=== PATIENT | female | born 1985 | race Caucasian/White ===

== ENCOUNTER → 2017-09-15 16:39 | Outpatient (REF) | payer OTHER, SELFPAY ==
[2017-09-15 23:12] LABS: Amphetamine/Metha Screen,Urine Negative ng/mL (<1000); Barbiturates Screen,Urine Negative ng/mL (<200); Benzodiazepines Screen,Urine Negative ng/mL (200); Cannabinoid Screen,Urine Negative ng/mL (<50); Cocaine Screen,Urine Negative ng/g (<300); Methadone Screen,Urine Negative ng/mL (<300); Opiate Screen,Urine Negative ng/mL (<300); Phencyclidine Screen,Urine Negative ng/mL (<25)
== END ==
LOC: LAB 16:39
PROVIDERS: Visit Provider Physician Assistant
DX: Z79.899 Other long term (current) drug therapy (principal)
CPT/HCPCS: 80305

== ENCOUNTER 2017-11-17 14:21 | Emergency (ER) | payer OTHER, SELFPAY ==
[2017-11-17 14:51] VITALS: BP 141/89; PULSE 83; RESP 20; TEMP 36.8; O2SAT 97; BMI 25.0
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
[2017-11-17 15:17] LABS: UTC Pregnancy Test, Urine Negative (Negative)
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
[2017-11-17 15:24] VITALS: BP 141/89; PULSE 83; RESP 20; TEMP 36.8
== END 2017-11-17 15:44 | disposition home or self-care (01) ==
PROVIDERS: Emergency Provider Nurse Practitioner; PCP Physician Assistant
DX: M62.838 Other muscle spasm (principal); M25.511 Pain in right shoulder; F41.8 Other specified anxiety disorders; E78.5 Hyperlipidemia, unspecified; I10 Essential (primary) hypertension; F17.210 Nicotine dependence, cigarettes, uncomplicated; E87.6 Hypokalemia; Z88.8 Allergy status to other drugs, medicaments and biological substances
CPT/HCPCS: 81025; 96372; 99201

== ENCOUNTER → 2017-12-12 16:23 | Outpatient (REF) | payer OTHER, SELFPAY ==
[2017-12-12 18:54] LABS: Amphetamine/Metha Screen,Urine Negative ng/mL (<1000); Barbiturates Screen,Urine Negative ng/mL (<200); Benzodiazepines Screen,Urine Negative ng/mL (200); Cannabinoid Screen,Urine Negative ng/mL (<50); Cocaine Screen,Urine Negative ng/g (<300); Methadone Screen,Urine Negative ng/mL (<300); Opiate Screen,Urine Negative ng/mL (<300); Phencyclidine Screen,Urine Negative ng/mL (<25)
[2017-12-16 12:28] LABS: Alprazolam Negative (Cutoff=100); Benzodiazepines Negative ng/mL (Cutoff=100); Clonazepam Negative (Cutoff=100); Flurazepam Negative (Cutoff=100); Lorazepam Negative (Cutoff=100); Midazolam Negative (Cutoff=100); Temazepam Negative (Cutoff=100); Triazolam Negative (Cutoff=100)
== END ==
LOC: LAB 16:23
PROVIDERS: Visit Provider Physician Assistant
DX: Z79.899 Other long term (current) drug therapy (principal); R10.9 Unspecified abdominal pain
CPT/HCPCS: 80305; 80346; 87086; 87088; 87186

== ENCOUNTER 2017-12-20 13:58 | Outpatient (CLI) | payer OTHER, SELFPAY ==
[2017-12-20 14:45] VITALS: BP 87/63; PULSE 68; RESP 20; TEMP 36.7; O2SAT 96
[2017-12-20 15:00] VITALS: BP 97/63; PULSE 80; RESP 20; O2SAT 96
== END 2017-12-20 15:00 | disposition home or self-care (01) ==
LOC: INF 14:03
PROVIDERS: PCP Physician Assistant; Visit Provider Physician Assistant
DX: N39.0 Urinary tract infection, site not specified (principal); B96.20 Unspecified Escherichia coli [E. coli] as the cause of diseases classified elsewhere
CPT/HCPCS: 96372; J1335

== ENCOUNTER 2017-12-21 14:10 | Outpatient (CLI) | payer OTHER, SELFPAY ==
[2017-12-21 14:50] VITALS: BP 77/57; PULSE 86; RESP 18
== END 2017-12-21 15:00 | disposition still patient (30) ==
LOC: INF 14:17
PROVIDERS: PCP Physician Assistant; Visit Provider Physician Assistant
DX: N39.0 Urinary tract infection, site not specified (principal); B96.20 Unspecified Escherichia coli [E. coli] as the cause of diseases classified elsewhere
CPT/HCPCS: 96372; J1335

== ENCOUNTER 2017-12-22 11:06 | Outpatient (CLI) | payer OTHER, SELFPAY ==
[2017-12-22 11:45] VITALS: BP 122/76; PULSE 82; RESP 18; TEMP 36.7; O2SAT 100
== END 2017-12-22 12:00 | disposition home or self-care (01) ==
LOC: INF 11:06
PROVIDERS: PCP Physician Assistant; Visit Provider Physician Assistant
DX: N39.0 Urinary tract infection, site not specified (principal); B96.20 Unspecified Escherichia coli [E. coli] as the cause of diseases classified elsewhere
CPT/HCPCS: 96372; J1335

== ENCOUNTER → 2017-12-23 16:01 | Outpatient (CLI) | payer OTHER, SELFPAY ==
[2017-12-23 16:01] VITALS: BP 102/77; PULSE 86; RESP 20; TEMP 36.9; O2SAT 96
[2017-12-23 16:17] VITALS: BP 103/75; PULSE 85; RESP 20; TEMP 36.9; O2SAT 96
== END ==
PROVIDERS: PCP Physician Assistant; Visit Provider Physician Assistant
DX: N39.0 Urinary tract infection, site not specified (principal); B96.20 Unspecified Escherichia coli [E. coli] as the cause of diseases classified elsewhere
CPT/HCPCS: 96372; J1335

== ENCOUNTER 2017-12-26 12:10 | Outpatient (CLI) | payer OTHER, SELFPAY ==
[2017-12-26 12:30] VITALS: BP 107/73; PULSE 91; RESP 18; TEMP 36.6
== END 2017-12-26 12:45 | disposition home or self-care (01) ==
LOC: INF 12:19
PROVIDERS: Visit Provider Physician Assistant
DX: N39.0 Urinary tract infection, site not specified (principal); B96.20 Unspecified Escherichia coli [E. coli] as the cause of diseases classified elsewhere
CPT/HCPCS: 96372; J1335

== ENCOUNTER 2017-12-27 13:09 | Outpatient (CLI) | payer OTHER, SELFPAY ==
[2017-12-27 13:35] VITALS: BP 122/78; PULSE 66; RESP 20; TEMP 36.7; O2SAT 96
[2017-12-27 13:50] VITALS: BP 110/68; PULSE 66; RESP 20; TEMP 36.9; O2SAT 96
== END 2017-12-27 13:50 | disposition home or self-care (01) ==
LOC: INF 13:09
PROVIDERS: PCP Physician Assistant; Visit Provider Physician Assistant
DX: N39.0 Urinary tract infection, site not specified (principal); B96.20 Unspecified Escherichia coli [E. coli] as the cause of diseases classified elsewhere
CPT/HCPCS: 96372; J1335

== ENCOUNTER 2017-12-28 13:15 | Outpatient (CLI) | payer OTHER, SELFPAY ==
[2017-12-28 13:42] VITALS: BP 115/80; PULSE 76; RESP 18; TEMP 36.7; O2SAT 100
== END 2017-12-28 14:00 | disposition home or self-care (01) ==
LOC: INF 13:15
PROVIDERS: PCP Physician Assistant; Visit Provider Physician Assistant
DX: N39.0 Urinary tract infection, site not specified (principal); B96.20 Unspecified Escherichia coli [E. coli] as the cause of diseases classified elsewhere
CPT/HCPCS: 96372; J1335

== ENCOUNTER → 2017-12-28 14:40 | Outpatient (REF) | payer OTHER, SELFPAY | LOC: LAB 14:40 | PROVIDERS: Visit Provider Physician Assistant | DX: R10.9 Unspecified abdominal pain (principal); A49.9 Bacterial infection, unspecified; Z16.12 Extended spectrum beta lactamase (ESBL) resistance | CPT/HCPCS: 87086 ==

== ENCOUNTER 2017-12-29 12:55 | Outpatient (CLI) | payer OTHER, SELFPAY ==
[2017-12-29 12:56] VITALS: BP 104/69; PULSE 87; RESP 18; TEMP 36.7; O2SAT 98; BMI 25.4
== END 2017-12-29 13:30 | disposition home or self-care (01) ==
LOC: INF 12:55
PROVIDERS: PCP Physician Assistant; Visit Provider Physician Assistant
DX: N39.0 Urinary tract infection, site not specified (principal); B96.20 Unspecified Escherichia coli [E. coli] as the cause of diseases classified elsewhere
CPT/HCPCS: 96372; J1335

== ENCOUNTER → 2018-01-18 12:38 | Outpatient (CLI) | payer OTHER, SELFPAY ==
--- NOTE | 2018-01-18 12:41 | CT_ITS ---
CT abdomen pelvis wo con Ordering Physician: SHANNAN Martin Patient Age: 32 years: Female HISTORY: ITS.REASON: bilateral flank pain, hematuria, EBSL + TECHNIQUE: Helical CT scanning performed at abdomen & pelvis with no oral nor IV contrast utilized. Axial sagittal and coronal reconstructions performed on CT workstation. All CT scans at this facility used one or more dose reduction techniques , viz: automatic exposure control, ma/Kv adjustment per patient's size, (including targeted exam where dose matched to the indication; i.e. head); or iterative reconstruction technique COMPARISON :None FINDINGS Lung bases. Clear. No active disease heart normal size Abdomen/pelvis. The lack of oral and IV contrast decreases sensitivity. Liver. Normal size and appearance. Gallbladder is contracted no calcified stones. No biliary ductal dilatation. Pancreas unremarkable on this noncontrast study. Spleen. Satisfactory. Normal to upper normal size.. tract Kidneys. No urinary tract calculi nor obstruction. No stranding about either kidney. The kidneys appear normal in size shape & position. . Ureters unremarkable. No calculi nor obstruction. Bladder unremarkable. Pelvis Retroverted retroflexed uterus appears satisfactory THE LEFT ovary is larger than the right measuring 4.1 cm length x 2.8 cm. Left ovary Likely contains multiple cysts with largest 18 mm cyst RIGHT ovary is smaller at 3 cm. Minimal fluid the cul-de-sac likely physiologic GI TRACT Large, increased stool is seen throughout the right colon including low-lying cecum. Prominent stool also seen but less pronounced at the transverse colon. A this may reflect some constipation towards the right colon. However there is minimal stool and gas at the left colon distal to the splenic flexure. The stool from the left colon and rectosigmoid has cleared The appendix is normal. Terminal ileum unremarkable. Small bowel appears normal. Stomach the moderate wall thickness due to its lack of distention. Tiny umbilical hernia. Not of significance.. . There is some areas of focal mild edematous changes at the buttocks bilaterally suggesting subcutaneous gluteal injections. Clinical correlation required . Osseous structures intact. No significant findings IMPRESSION... No acute findings abdomen or pelvis 1. No urinary tract calculi nor obstruction... No findings to account for the right sided flank pain . Ureters unremarkable bladder unremarkable. 2. At pelvis generous size left ovary measured 4.1 cm.. It containing on multiple follicular cysts the largest estimated at 1.8 cm size. Minimal fluid at cul-de-sac appears physiologic. 3. Very Prominent large amount stool seen throughout the right colon with generous stool throughout transverse colon to the splenic flexure.- May reflect constipation right colon. Minimal stool left colon and rectosigmoid
== END ==
PROVIDERS: PCP Physician Assistant; Visit Provider Physician Assistant
DX: N10 Acute pyelonephritis (principal); R10.9 Unspecified abdominal pain
CPT/HCPCS: 74176

== ENCOUNTER → 2018-02-02 15:02 | Outpatient (REF) | payer OTHER, SELFPAY ==
[2018-02-02 18:47] LABS: Amphetamine/Metha Screen,Urine Negative ng/mL (<1000); Barbiturates Screen,Urine Negative ng/mL (<200); Benzodiazepines Screen,Urine Negative ng/mL (200); Cannabinoid Screen,Urine Negative ng/mL (<50); Cocaine Screen,Urine Negative ng/g (<300); Methadone Screen,Urine Negative ng/mL (<300); Opiate Screen,Urine Negative ng/mL (<300); Phencyclidine Screen,Urine Negative ng/mL (<25)
[2018-02-03 14:34] LABS: Basophils % 0.5 % (0.1-2.0); Eosinophils # 0.3 K/mm3 (0.0-0.4); Eosinophils % 3.6 % (0.1-12.0); Hematocrit 37.8 % (37.0-47.0); Hemoglobin 11.4 g/dL (12.2-16.2); Lymphocytes # 2.8 K/mm3 (0.7-4.5); Lymphocytes % 31.2 K/mm3 (10-50); Mean Corpuscular HGB Conc 30.2 g/dL (31.8-35.4); Mean Corpuscular Hemoglobin 24.5 pg (27.0-31.2); Mean Corpuscular Volume 81.1 fl (81-99); Mean Platelet Volume 9.3 fl (7.4-10.4); Monocytes # 0.4 K/mm3 (0.1-1.0); Monocytes % 4.2 % (1.7-9.3); Neutrophils # 5.4 K/mm3 (1.8-7.8); Neutrophils % 60.5 % (37.0-80.0); Platelet Count 286 K/mm3 (142-424); Red Blood Count 4.66 M/mm3 (4.20-5.40); Red Cell Distribution Width 16.8 % (11.5-17.5); White Blood Count 8.9 K/mm3 (4.8-10.8)
[2018-02-03 14:59] LABS: Alanine Aminotransferase 13 U/L (12-78); Albumin Level 3.4 gm/dL (3.4-5.0); Albumin/Globulin Ratio 0.9 (1.1-1.8); Alkaline Phosphatase 102 U/L (46-116); Anion Gap 11.4 mEq/L (5-15); Aspartate Amino Transferase 11 U/L (15-37); Bilirubin,Total 0.2 mg/dL (0.2-1.0); Blood Urea Nitrogen 8 mg/dL (7-18); Calcium 9.4 mg/dL (8.5-10.1); Carbon Dioxide 29 mmol/L (21.0-32.0); Chloride 108 mmol/L (98-107); Chol/HDL Ratio 4.8 (1-3.5); Cholesterol 178 mg/dL (140-200); Creatinine,Serum 0.81 mg/dL (0.55-1.02); Estimated Glomerular Filt Rate 81 ml/min (>60); GFR (African American) 98 ML/MIN (>60); Globulin 3.8 gm/dl (1.3-3.2); Glucose 68 mg/dL (74-106); HDL Cholesterol 37 mg/dL (29-89); LDL Cholesterol 121 mg/dL (0-130); Potassium 3.4 mmoL/L (3.5-5.1); Sodium 145 mmol/L (136-145); T4 (Thyroxine) 11.5 ug/dl (4.7-13.3); Total Protein,Serum 7.2 gm/dL (6.4-8.2); Triglycerides 99 mg/dL (30-200); VLDL Cholesterol 20 mg/dL (0-40)
[2018-02-04 16:59] LABS: Vitamin D 25 Hydroxy 32.5 ng/mL (30.0-100.0)
[2018-02-13 10:09] LABS: Alprazolam Negative (Cutoff=100); Benzodiazepines Positive ng/mL (Cutoff=100); Clonazepam Positive (.); Flurazepam Negative (Cutoff=100); Lorazepam Negative (Cutoff=100); Midazolam Negative (Cutoff=100); Temazepam Negative (Cutoff=100); Triazolam Negative (Cutoff=100)
[2018-02-14 09:18] LABS: Clonazepam Confirm 613 ng/mL (Cutoff=100)
== END ==
LOC: LAB 15:02
PROVIDERS: Visit Provider Physician Assistant
DX: I10 Essential (primary) hypertension (principal); Z79.899 Other long term (current) drug therapy
CPT/HCPCS: 80053; 80061; 80305; 80346; 82652; 84436; 84443; 85025

== ENCOUNTER → 2018-02-03 14:04 | Outpatient (CLI) | payer OTHER, SELFPAY | PROVIDERS: Visit Provider Physician Assistant | DX: Z79.899 Other long term (current) drug therapy (principal) ==

== ENCOUNTER → 2018-03-08 13:16 | Outpatient (REF) | payer OTHER, SELFPAY ==
[2018-03-08 18:40] LABS: Amphetamine/Metha Screen,Urine Negative ng/mL (<1000); Barbiturates Screen,Urine Negative ng/mL (<200); Benzodiazepines Screen,Urine Negative ng/mL (<200); Cannabinoid Screen,Urine Negative ng/mL (<50); Cocaine Screen,Urine Negative ng/mL (<300); Methadone Screen,Urine Negative ng/mL (<300); Opiate Screen,Urine Negative ng/mL (<300); Phencyclidine Screen,Urine Negative ng/mL (<25)
[2018-03-21 08:29] LABS: Alprazolam Negative (Cutoff=100); Benzodiazepines Negative ng/mL (Cutoff=100); Clonazepam Negative (Cutoff=100); Flurazepam Negative (Cutoff=100); Lorazepam Negative (Cutoff=100); Midazolam Negative (Cutoff=100); Temazepam Negative (Cutoff=100); Triazolam Negative (Cutoff=100)
== END ==
LOC: LAB 13:16
PROVIDERS: Visit Provider Physician Assistant
DX: Z79.899 Other long term (current) drug therapy (principal)
CPT/HCPCS: 80305; 80346